=== PATIENT | male | born 1975 | race Caucasian/White ===

== ENCOUNTER 2018-06-01 17:29 | Observation (INO) | payer BC ==
[2018-06-01 19:37] LABS: Troponin I Less than 0.010 ng/mL (< 0.028)
[2018-06-01 21:26] LABS: Troponin I Less than 0.010 ng/mL (< 0.028)
[2018-06-01] MEDS ORDERED: hydrALAZINE 20 MG/ML VIAL SLOW IVP PRN (22:03)
[2018-06-01] MEDS ORDERED: Mag-Al 1200 mg/1200 mg/30 ML UDCUP PO PRN (22:03)
[2018-06-01] MEDS ORDERED: Acetaminophen 325 MG TAB PO PRN (22:03)
[2018-06-01] MEDS ORDERED: cloNIDine 0.1 MG TAB PO PRN (22:03)
[2018-06-01] MEDS ORDERED: Ondansetron HCl/PF 4 MG/2 ML Vial IVP PRN (22:03)
[2018-06-01] MEDS ORDERED: Lorazepam 1 MG TAB PO PRN (22:03)
[2018-06-01] MEDS ORDERED: Diabetic Tussin 200 MG/10 ML UDCUP PO PRN (22:03)
[2018-06-01] MEDS ORDERED: Senokot 8.6 MG TAB PO PRN (22:03)
[2018-06-01] MEDS ORDERED: Benzonatate 100 MG CAP PO PRN (22:03)
[2018-06-01] MEDS ORDERED: traMADol HCl 50 MG TAB PO PRN (22:03)
[2018-06-01] MEDS ORDERED: Calcium Carbonate 500 MG ChewTAB PO PRN (22:03)
[2018-06-01] MEDS ORDERED: Bisacodyl 5 MG TAB PO PRN (22:03)
[2018-06-01] MEDS ORDERED: Nitroglycerin 0.4 MG TAB (25 Tab Bottle) PO PRN (22:03)
[2018-06-01 22:43] VITALS: BMI 23.3
[2018-06-01 22:47] LABS: Cardiac Risk 3.8 (Less than 4.5)
[2018-06-01] MEDS ORDERED: Non-Formulary Item 1 EACH (Fluticasone/Salmeterol [Advair Diskus 100/50] 1 INH) IH SCH (23:01)
[2018-06-01] MEDS ORDERED: PROVENTIL INHALER 6.7 G (200 INHALATIONS) INH PRN (23:01)
[2018-06-01 23:26] LABS: Amphetamine Not Detected (NotDetected); Barbiturates Screen Not Detected (NotDetected); Benzodiazepine Screen Not Detected (NotDetected); Cocaine Metabolite Screen Not Detected (NotDetected); Medtox Control Line Valid? VALID (VALID); Medtox Reader # READER 4; Methadone Not Detected (NotDetected); Methamphetamine Not Detected (NotDetected); Opiate Screen Not Detected (NotDetected); Oxycodone Screen Not Detected (NotDetected); Phencyclidine (PCP) Not Detected (NotDetected); THC/Cannabinoid Screen Not Detected (NotDetected); Tricyclic Screen Not Detected (NotDetected)
[2018-06-02 01:10] LABS: #Eosinphils 0.3 thou/uL (0.0-0.7); #Lymphocytes 1.9 thou/uL (1.20-3.40); #Monocytes 0.5 thou/uL (0.11-0.59); #Neutrophils 2.8 thou/uL (1.40-6.50); %Basophils 0.8 % (0.0-1.0); %Eosinophils 5.2 % (0.0-10.0); %Lymphocytes 34.2 % (21.0-51.0); %Monocytes 9.6 % (0.0-10.0); %Neutrophils 50.1 % (42.0-75.0); Hemoglobin 14.5 g/dL (14.0-18.0); Mean Corpuscular HGB CONC 34.1 g/dL (32.0-36.0); Mean Corpuscular Hemoglobin 29.5 pg (27.0-31.0); Mean Corpuscular Volume 86.6 fL (78.0-98.0); Mean Platelet Volume 7.2 fL (7.4-10.4); Platelet Count 212 thou/uL (130-400); RBC Distribution Width 11.6 % (11.5-14.5); Red Blood Cell (RBC) Count 4.92 mill/uL (4.70-6.10); White Blood Cell (WBC) Count 5.6 thou/uL (4.8-10.8)
[2018-06-02 01:35] LABS: Troponin I Less than 0.010 ng/mL (< 0.028)
[2018-06-02 01:36] LABS: Anion Gap 13 mmol/L (10-20); BUN (Urea Nitrogen) 16 mg/dL (8.9-20.6); Calc. Creatinine Clearance 104 mL/min (70-130); Calcium 9.3 mg/dL (7.8-10.44); Carbon Dioxide 26 mmol/L (22-29); Chloride 104 mmol/L (98-107); Estimated GFR-MDRD 73; Glucose 113 mg/dL (70-105); Potassium 3.9 mmol/L (3.5-5.1); Sodium 139 mmol/L (136-145)
--- NOTE | 2018-06-02 01:45 | HP ---
DATE OF ADMISSION: 06/01/2018 Please note that the patient was seen prior to midnight. PRIMARY CARE PHYSICIAN: Dr. Иван Almonte. CHIEF COMPLAINT: Chest pain. HISTORY OF PRESENTING ILLNESS: Mr. Rodriguez is a very pleasant 43-year-old male with a past medical hi story of asthma, who presented to the ER with the above-mentioned complaint. History is mainly obtai otoniel by the patient himself and electronic medical records have been reviewed. Mr. Rodriguez reports that early this morning he started to have some left-sided chest pain which felt l valentin a muscle spasm. It started all of a sudden and was associated with dizziness, weakness, nausea, and shortness of breath. The patient reports that the pain radiated up his neck on both sides and th e acute episode lasted for about an hour. He continued to have this spasmodic pain all throughout th e day. Eventually, he presented to the emergency room in [place]. He has history of palpitations in the past and has undergone a 3-day heart monitoring by his primary care physician, which did not reveal any abnormalities. He denies any recent illnesses. He denies a ny orthopnea, PND or lower extremity swelling. His EKG in the emergency room showed sinus bradycardia at heart rate of 56 with incomplete right bund le branch block. Chest x-ray was unremarkable. He was hemodynamically stable upon presentation with a blood pressure of 144/88. He was transferred to our facility for further evaluation. He has rece ived aspirin in the emergency room and is now being admitted for further evaluation and rule out acut e coronary syndrome. His cardiac enzymes have been negative so far. PAST MEDICAL HISTORY: 1. Asthma. 2. Skin cancer. PAST SURGICAL HISTORY: 1. Sternum repair. 2. ACL repair. 3. Skin cancer removal from right arm. 4. Appendectomy. PSYCHIATRIC HISTORY: No anxiety, no depression. SOCIAL HISTORY: He is a former tobacco abuser, quit more than 10 years ago. He has chewed tobacco f or the last year, but he has quit that 1 month ago. 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 FAMILY HISTORY: Significant for hypertension in family members. ALLERGIES: No known medication allergies. CURRENT MEDICATIONS: Spiriva one inhalation daily, Advair Diskus 100/50 one inhalation b.i.d., albut samantha inhaler as needed. REVIEW OF SYSTEMS: A 12-point review of systems was done. It is negative except for those mentioned in the history and physical. LABORATORY DATA AND IMAGING: His serial cardiac enzymes and troponin less than 0.010 x3. CBC is unr emarkable. Serum chemistries, otherwise unremarkable. Urine drug screen negative. Amylase and lipa se within normal limit. Chest x-ray by my review has no evidence to suggest acute infiltrate, edema. Twelve-lead EKG shows no acute ST or T-wave changes, shows sinus rhythm. PHYSICAL EXAMINATION: VITAL SIGNS: Most recent vital signs, temperature 98.3, pulse of 72, respirations 16, saturating 97% on room air, blood pressure 125/82. GENERAL: No acute distress. Awake, alert, and oriented x3. He is walking around in the room. is at bedside. HEENT: Mucous membrane is moist and pink. No oropharyngeal exudate or erythema. Head is normocepha lic and atraumatic. Pupils are equal, reactive to light and accommodation. Extraocular movement int act. NECK: Supple without any lymphadenopathy, JVD or bruit. CHEST: Clear to auscultation without any wheezing, rales or rhonchi. CARDIOVASCULAR: Rate and rhythm is regular without any murmur, rubs or gallops. ABDOMEN: Soft, nontender, nondistended with positive bowel sounds. EXTREMITIES: Free of any cyanosis, clubbing, or edema. NEUROLOGIC: Nonfocal. SKIN: Free of any rashes or bruises. I feel warm and dry to touch. PSYCHIATRIC: Normal affect. IMPRESSION AND PLAN: 1. Chest pain. The patient has multiple risk factors including tobacco abuse, as well as some famil y history. He has never been risk stratified. We will go ahead and get a nuclear medicine stress te st for him. At this time, we will put him on full dose aspirin and check lipid panel as well. We wi ll add nebulizers as needed and restart his home medication for his asthma. I have advised them to f yadiellow up with Cardiology as an outpatient to maybe get a Holter monitor to evaluate his palpitations if his stress test is negative and he is discharged in the morning. Continue to monitor him on telem etry. He is currently hemodynamically stable. 2. History of asthma, currently well controlled. Resume home medications. 3. Code status: FULL CODE. Discussed with the patient. 4. A.m. labs. 5. Add deep venous thrombosis and gastrointestinal prophylaxis. DISPOSITION: Mr. Rodriguez is currently being admitted to the hospital for chest pain workup and observ ation status. Further management will depend upon his clinical course.
[2018-06-02] MEDS ORDERED: Mometasone/Formoterol 120 PUFF INHALER INH SCH (06:30)
[2018-06-02] MEDS ORDERED: Enoxaparin Sodium 40 MG/0.4 ML SYRINGE SC SCH (09:00)
[2018-06-02] MEDS ORDERED: Aspirin 325 MG TAB PO SCH (09:00)
[2018-06-02] MEDS ORDERED: Spiriva 18 MCG CAP (Box of 5 Caps) FS SCH (09:00)
[2018-06-02] MEDS ORDERED: Famotidine 20 MG TAB PO SCH (09:00)
[2018-06-02] MEDS ORDERED: Regadenoson 0.4 MG/5 ML SYRINGE ONE (11:06)
[2018-06-02 15:52] VITALS: BP 121/73; TEMP 98.7
--- NOTE | 2018-06-02 16:11 | DIS ---
PRIMARY CARE PHYSICIAN: Dr. Иван Almonte. PRIMARY SHAREPOINT WEB DEVELOPER: Dr. Demetrius Owen. DATE OF ADMISSION: 05/24/2018 DATE OF DISCHARGE: 06/02/2018 DISCHARGE DIAGNOSES: 1. Nonischemic chest pain. 2. Asthma. 3. Palpitations. CONSULTATIONS: None. PROCEDURES: Nuclear stress test 05/24/2015 that showed no reversible ischemia. HISTORY AND PHYSICAL: Mr. Rodriguez is a 43-year-old male who was in the Emergency Department for evalu ation of chest pain and palpitations. Workup in the ER was unremarkable. We were asked to observe o vernight and rule out. HOSPITAL COURSE: The patient was seen by Dr. Langston and placed in observation. Serial cardiac biom arkers were obtained that were negative. A nuclear stress test ordered for today was negative. The patient had negative telemetry. No further palpitations. He was subsequently discharged home in sta ble condition for outpatient followup with Dr. Owen. PHYSICAL EXAMINATION: The patient was seen and examined on the day of discharge. Discharge plan and disposition was discussed with the patient, patient placed at the bedside. DISCHARGE MEDICATIONS: 1. Albuterol sulfate HFA 2 puffs inhaled q.4 hours p.r.n. shortness of breath. 2. Advair Diskus 100/50 one puff inhaled b.i.d. 3. Spiriva 18 mcg delivery 1 capsule inhaled daily. FOLLOWUP APPOINTMENTS: 1. Primary care physician within a week. 2. Dr. Owen in 1 week. DISCHARGE ACTIVITY: Per cardiopulmonary limits. DISCHARGE DIET: Heart healthy recommended. DISCHARGE CONDITION: Stable. DISPOSITION: Discharge will be private vehicle.
--- NOTE | 2018-06-02 17:03 | NM ---
MYOCARDIAL PERFUSION STUDY: Date: 06-02-18 History: Chest pain. Radiopharmaceutical: 29 mCi Technetium 99M Sestamibi, IV at stress and 9.8 mCi Technetium 99M Sestami bi, IV at rest. Medications: 0.4 mg Lexiscan IV. FINDINGS: There is normal distribution of the radiotracer seen throughout the left ventricular myocardium on jorge luis th the resting and stress acquisitions. No reversible defect is seen. Quantitative analysis shows no reversible defect. Gated images show normal ventricular wall motion and wall thickening. The calculat ed left ventricular ejection fraction is 58%. IMPRESSION: 1. Normal myocardial perfusion study without evidence of a reversible defect seen to suggest ischemia . 2. Normal LVEF of 58%. POS: [facility]
== END 2018-06-02 16:14 | disposition home or self-care (01) ==
LOC: ERS 17:29 → 2SW 22:38
PROVIDERS: ADMIT Internal Medicine; ATTEND Internal Medicine
DX: R07.89 Other chest pain (principal); J45.909 Unspecified asthma, uncomplicated; R00.2 Palpitations; Z87.891 Personal history of nicotine dependence; Z79.899 Other long term (current) drug therapy
CPT/HCPCS: 36415; 78452; 80048; 80061; 80306; 84484; 85025; 93005; 93017; 94760; A4216; A9500; G0378; J1650; J2785; J7620

== ENCOUNTER 2023-10-10 13:33 | Outpatient (CLI) | payer BC | END 2023-10-10 13:34 | disposition home or self-care (01) | LOC: MRI 13:33 | PROVIDERS: ATTEND Neurological Surgery | DX: M47.22 Other spondylosis with radiculopathy, cervical region (principal); M48.02 Spinal stenosis, cervical region; Z98.890 Other specified postprocedural states | CPT/HCPCS: 72050; 72141 ==